=== PATIENT | female | born 1955 | race Caucasian/White ===

== ENCOUNTER → 2016-09-06 | Outpatient (CLI) | payer MEDICARE, OTHER ==
[~2016-09-06] MED LIST: ADVAIR HFA 115/12 GM INH; BENTYL10 MG PO; BUPROPION HCL150 M1 PO; COLACE 100MG C100 MG PO; FLONASE 0.05% N16 GM; GLUCOPHAGE 500500 MG PO; HYDROCHLOROTHIA25 MG PO; HYDROXYZINE HCL10 MG PO; KEFLEX500 MG PO; LIORESAL TAB 1010 MG PO; LISINOPRIL10 MG PO; NEURONTIN 300300 MG PO; NIACIN500 MG PO; NORCO 10-325 T1 EACH PO; NORVASC 5 MG TAB5 MG PO; PRAVACHOL80 MG PO; REGLAN10 MG PO; SINGULAIR10 MG PO; TOPROL XL 25 MG25 MG PO; TRAZODONE HCL50 MG PO; VENTOLIN/PROVE0.5 ML INH; ZANTAC300 MG PO; ZETIA10 MG PO; ZYRTEC10 M3 PO
== END ==
LOC: LAB 08:07
DX: B89 Unspecified parasitic disease (principal); Z88.6 Allergy status to analgesic agent; Z88.8 Allergy status to other drugs, medicaments and biological substances; Z88.5 Allergy status to narcotic agent
CPT/HCPCS: 36415; 82784; 82785

== ENCOUNTER → 2016-09-29 | Outpatient (CLI) | payer MEDICARE, OTHER | LOC: RAD 15:00 | DX: M54.9 Dorsalgia, unspecified (principal) | CPT/HCPCS: 72110; 73502 ==

== ENCOUNTER → 2016-10-06 | Outpatient (CLI) | payer MEDICARE, OTHER | LOC: US 13:24 | DX: M79.621 Pain in right upper arm (principal); M79.622 Pain in left upper arm; R59.0 Localized enlarged lymph nodes | CPT/HCPCS: 76881 ==

== ENCOUNTER → 2016-11-06 | Outpatient (CLI) | payer MEDICARE, OTHER | LOC: SLEEP 21:30 | DX: G47.30 Sleep apnea, unspecified (principal) | CPT/HCPCS: 95810 ==

== ENCOUNTER → 2016-11-07 | Outpatient (CLI) | payer MEDICARE, OTHER | LOC: SLEEP 14:34 | DX: G47.33 Obstructive sleep apnea (adult) (pediatric) (principal); G47.10 Hypersomnia, unspecified | CPT/HCPCS: 95805 ==

== ENCOUNTER 2016-12-02 14:53 | Emergency (ER) | payer MEDICARE, OTHER | END 2016-12-02 16:10 | disposition home or self-care (01) | LOC: ER1 14:53 | DX: S29.012A Strain of muscle and tendon of back wall of thorax, initial encounter (principal); I10 Essential (primary) hypertension; F17.210 Nicotine dependence, cigarettes, uncomplicated; Z90.49 Acquired absence of other specified parts of digestive tract; X50.1XXA Overexertion from prolonged static or awkward postures, initial encounter; Y92.009 Unspecified place in unspecified non-institutional (private) residence as the place of occurrence of the external cause; Z88.2 Allergy status to sulfonamides; Z88.5 Allergy status to narcotic agent; Z88.6 Allergy status to analgesic agent; Z88.8 Allergy status to other drugs, medicaments and biological substances | CPT/HCPCS: 96372; 99283; J2270; J2405 ==

== ENCOUNTER → 2016-12-21 | Outpatient (CLI) | payer MEDICARE, OTHER ==
[2016-12-21 17:24] LABS: HEMOGLOBIN 12.1 gm/dl (12.3-15.3); RED BLOOD COUNT 4.06 M/UL (4.00-5.10); WHITE BLOOD COUNT 6.1 K/UL (4.5-11.0)
[2016-12-21 17:48] LABS: BUN/CREATININE RATIO 18 (0-10)
== END ==
LOC: LAB 16:30
PROVIDERS: Internal Medicine
DX: J45.40 Moderate persistent asthma, uncomplicated (principal); J30.89 Other allergic rhinitis; D84.9 Immunodeficiency, unspecified; B89 Unspecified parasitic disease; E11.9 Type 2 diabetes mellitus without complications; E78.5 Hyperlipidemia, unspecified; I10 Essential (primary) hypertension; Z79.899 Other long term (current) drug therapy
CPT/HCPCS: 36415; 80053; 80061; 82306; 82784; 82787; 83036; 84439; 84443; 85025

== ENCOUNTER 2016-12-24 13:04 | Emergency (ER) | payer MEDICARE, OTHER | END 2016-12-24 15:18 | disposition home or self-care (01) | LOC: ER1 13:04 | DX: G43.709 Chronic migraine without aura, not intractable, without status migrainosus (principal); S29.012A Strain of muscle and tendon of back wall of thorax, initial encounter; I10 Essential (primary) hypertension; E11.9 Type 2 diabetes mellitus without complications; J45.909 Unspecified asthma, uncomplicated; F17.210 Nicotine dependence, cigarettes, uncomplicated; Z90.49 Acquired absence of other specified parts of digestive tract; Z88.1 Allergy status to other antibiotic agents; Z88.2 Allergy status to sulfonamides; Z88.5 Allergy status to narcotic agent; Z88.6 Allergy status to analgesic agent; X58.XXXA Exposure to other specified factors, initial encounter; Z79.899 Other long term (current) drug therapy | CPT/HCPCS: 71020; 96372; 99283; J2270 ==

== ENCOUNTER → 2020-09-23 | Outpatient (CLI) | payer MEDICARE, OTHER ==
[~2020-09-23] MED LIST changes: +ALAVERT10 MG PO; +ALIVE PO; +AMITRIPTYLINE H10 MG PO; +ANTIVERT 25MG T25 MG PO; +CEPHALEXIN500 MG PO; +COLD & FLU REL180 ML PO; +CRESTOR10 MG PO; +D3 PO; +DAIRY RELIE9000 UNI1 PO; +FOLTX TABLET1 EACH PO; +HIZENTRA4 GM/20 ML SQ; +IMITREX100 MG PO; +MEGA BIOTIN10000 MCG PO; +METHYLPHENIDATE10 MG PO; +METOPROLOL TART25 MG PO; +NEOSPORIN OINT15 GM OU; +PHENERGAN 12.12.5 M1 PO; +PROTONIX40 MG PO; +TOPAMAX50 MG PO; -TOPROL XL 25 MG25 MG PO; +VIBRAMYCIN100 MG PO; +ZANAFLEX4 MG PO
== END ==
LOC: US 09:41
DX: K76.0 Fatty (change of) liver, not elsewhere classified (principal); N28.1 Cyst of kidney, acquired; N20.0 Calculus of kidney
CPT/HCPCS: 76700

== ENCOUNTER → 2020-12-15 | Outpatient (CLI) | payer MEDICARE, OTHER ==
[~2020-12-15] VITALS: Ht 152.4 cm; Wt 58.1 kg
== END ==
LOC: OPSV 12:00
DX: M81.0 Age-related osteoporosis without current pathological fracture (principal)
CPT/HCPCS: 96365; J3489

== ENCOUNTER → 2022-01-02 | Outpatient (CLI) | payer MEDICARE, OTHER ==
[~2022-01-02] VITALS: Ht 152.4 cm; Wt 63.0 kg
== END ==
LOC: OPSV 14:00
DX: M81.0 Age-related osteoporosis without current pathological fracture (principal)
CPT/HCPCS: 96365; J3489

== ENCOUNTER → 2022-02-01 | Outpatient (CLI) | payer MEDICARE, OTHER | LOC: KOH-I 12-13 10:00 | DX: F17.210 Nicotine dependence, cigarettes, uncomplicated (principal); R91.8 Other nonspecific abnormal finding of lung field; I25.10 Atherosclerotic heart disease of native coronary artery without angina pectoris | CPT/HCPCS: 71271 ==

== ENCOUNTER → 2022-03-21 | Outpatient (CLI) | payer MEDICARE, OTHER | LOC: HEART 5 10:41 | DX: J45.901 Unspecified asthma with (acute) exacerbation (principal) | CPT/HCPCS: 94010 ==